=== PATIENT | female | born 1945 | race Hispanic/Latino ===

== ENCOUNTER 2019-08-11 22:07 | Emergency (ER) | payer MEDICARE | END 2019-08-11 23:57 | disposition home or self-care (01) | LOC: EDH 22:07 | DX: J11.1 Influenza due to unidentified influenza virus with other respiratory manifestations (principal); I10 Essential (primary) hypertension; Z95.1 Presence of aortocoronary bypass graft; Z87.891 Personal history of nicotine dependence | CPT/HCPCS: 71046; 87804 ==

== ENCOUNTER 2020-08-30 00:38 | Inpatient (IN) | payer MEDICARE ==
[~2020-08-30] VITALS: Ht 162.6 cm; Wt 66.2 kg
[2020-08-30] MEDS ORDERED: ONDANSETRON 4MG INJ ONE (00:43)
[2020-08-30] MEDS ORDERED: AMIODARONE 150MG VIAL ONE ×2 (00:58→03:40)
[2020-08-30] MEDS ORDERED: 0.9%NACL 100ML 100 ML IV ONE (01:01)
[2020-08-30 01:05] LABS: BASOPHILS % (AUTO) 0.7 % (0.0-5.0); EOSINOPHILS % (AUTO) 3.1 % (0.0-8.0); HEMATOCRIT 32.4 % (36-48); LYMPHOCYTES % (AUTO) 31.9 % (21.0-51.0); MEAN CORPUSCULAR HEMOGLOBIN 31.6 pg (27.0-33.0); MEAN CORPUSCULAR HGB CONC 33.3 g/dL (32.0-36.0); MEAN CORPUSCULAR VOLUME 94.7 fL (79-99); MONOCYTES % (AUTO) 10.6 % (3.0-13.0); NEUTROPHILS % (AUTO) 53.3 % (40.0-77.0); PLATELET COUNT (AUTO) 171 K/uL (130-400); RED BLOOD CELL COUNT(AUTO) 3.42 MIL/uL (4.00-5.50); RED CELL DISTRIBUTION WIDTH 13.3 % (11.0-15.5); WHITE BLOOD COUNT (AUTO) 7.4 K/uL (4.8-10.8)
[2020-08-30 01:18] LABS: INR 1.1 (0.85-1.15); PROTHROMBIN TIME 11.9 SEC (9.6-11.6)
[2020-08-30 01:19] LABS: PARTIAL THROMBOPLASTIN TIME 32.4 SEC (26.3-35.5)
[2020-08-30 01:20] LABS: BILIRUBIN,TOTAL 0.9 mg/dL (0.2-1.0); CREATININE 1.2 mg/dL (0.5-1.5); POTASSIUM 3.5 mmol/L (3.5-5.1); TOTAL PROTEIN, SERUM 6.6 g/dL (6.0-8.3)
[2020-08-30 01:26] LABS: ALBUMIN 3.4 g/dL (3.5-5.0)
[2020-08-30 02:10] LABS: MAGNESIUM 1.9 mg/dL (1.80-2.40); PHOSPHORUS 4.2 mg/dL (2.5-4.9)
[2020-08-30] MEDS ORDERED: 0.9% NACL 500ML IV.SOLN 500 ML IV ONE (02:13)
[2020-08-30 04:45] VITALS: BP 99/49
[2020-08-30] MEDS ORDERED: QUET200T30 PO (06:06)
[2020-08-30] MEDS ORDERED: VITAD50000 PO (06:06)
[2020-08-30] MEDS ORDERED: PROG100C11 PO (06:06)
[2020-08-30] MEDS ORDERED: ATOR40TA69 PO (06:06)
[2020-08-30] MEDS ORDERED: ICOS1CAP PO (06:06)
[2020-08-30] MEDS ORDERED: LACT1CAP78 PO (06:06)
[2020-08-30] MEDS ORDERED: DULO30CA52 PO (06:06)
[2020-08-30] MEDS ORDERED: APIX5TAB PO (06:06)
[2020-08-30] MEDS ORDERED: MECL-160 PO (06:06)
[2020-08-30 06:21] LABS: CREATINE KINASE, TOTAL 72 U/L (21-232); MYOGLOBIN 40 ng/mL (10-92); TROPONIN I < 0.04 ng/mL (0.00-0.06)
[2020-08-30 08:00] VITALS: BP 104/63
[2020-08-30] MEDS ORDERED: MECLIZINE HCL 25 MG TABLET PO SCH (09:00)
[2020-08-30] MEDS ORDERED: FUROSEMIDE 40MG VIAL ONE (09:26)
[2020-08-30] MEDS ORDERED: NITROGLYCERIN 1GM OINT 1 INCH/1GM TD ONE (09:27)
[2020-08-30] MEDS ORDERED: DEXAMETHASONE SOD PHOSPHATE 4 MG/ML 1ML VIAL ONE (09:28)
[2020-08-30] MEDS ORDERED: FUROSEMIDE 40MG VIAL IV SCH (09:45)
[2020-08-30] MEDS ORDERED: NITROGLYCERIN 1GM OINT 1 INCH/1GM TD SCH (09:45)
[2020-08-30] MEDS ORDERED: ALBUTEROL INHALER 90MCG/INH IH PRN (09:45)
[2020-08-30] MEDS ORDERED: DEXAMETHASONE SOD PHOSPHATE 4 MG/ML 1ML VIAL IVP SCH (09:45)
[2020-08-30] MEDS: APIXABAN 5 MG TABLET PO SCH ×2 (10:27→21:06)
[2020-08-30] MEDS ORDERED: GLUCAGON 1MG KIT 1 MG ML IM PRN (10:30)
[2020-08-30] MEDS ORDERED: DEXTROSE 50%-WATER 50 ML DISP.SYRIN IV PRN (10:30)
[2020-08-30] MEDS ORDERED: POTASSIUM CHLORIDE 20MEQ/100ML 100 ML IV PRN ×2 (10:30→20:00)
[2020-08-30] MEDS ORDERED: MAGNESIUM 2GM PREMIX 50ML 50 ML IV PRN ×2 (10:30→20:00)
[2020-08-30] MEDS ORDERED: LIDOCAINE HCL-MPF 1% 2ML VIAL IV PRN ×2 (10:30→20:00)
[2020-08-30] MEDS ORDERED: AMIODARONE 900MG VIAL 450 MG in DEXTROSE 5%-WATER 250 ML IV SCH (10:45)
[2020-08-30 11:01] LABS: APPEARANCE,URINE Clear (CLEAR); BILIRUBIN,URINE Negative (NEGATIVE); COLOR,URINE Yellow (YELLOW); GLUCOSE, URINE (UA) Negative (NEGATIVE); KETONES,URINE Negative (NEGATIVE); LEUKOCYTE ESTERASE ,URINE Small (NEGATIVE); NITRATE,URINE Negative (NEGATIVE); OCCULT BLOOD,URINE Negative (NEGATIVE); PROTEIN,URINE Negative (NEGATIVE)
[2020-08-30 11:16] LABS: BACTERIA,URINE None Seen /HPF (None Seen); MUCUS,URINE Few LPF (None Seen); RBC,URINE None Seen /HPF (0-1); SQUAMOUS EPITHELIAL CELL,UR 0-2 /HPF (0-2); WBC,URINE 0-1 /HPF (0-1)
[2020-08-30 12:00] VITALS: BP 129/43
[2020-08-30] MEDS ORDERED: IPRATROPIUM 0.5 MG/2.5 ML INH IH SCH (12:00)
[2020-08-30 12:11] LABS: CREATINE KINASE, TOTAL 82 U/L (21-232); MYOGLOBIN 61 ng/mL (10-92); TROPONIN I < 0.04 ng/mL (0.00-0.06)
[2020-08-30] MEDS: IPRATROPIUM 0.5 MG/2.5 ML INH IH SCH ×2 (12:15→16:00)
[2020-08-30] MEDS: ALBUTEROL INHALER 90MCG/INH IH SCH ×3 (12:15→20:00)
[2020-08-30] MEDS: SOLU-MEDROL 40MG VIAL IVP SCH ×3 (12:15→21:11)
[2020-08-30] MEDS ORDERED: DILTIAZEM 25MG INJ IVP SCH (14:00)
[2020-08-30] MEDS: DILTIAZEM 125 MG/25 ML INJ 125 MG in 0.9%NACL 100ML 100 ML IV SCH (14:45)
[2020-08-30 16:00] VITALS: BP 116/56
[2020-08-30 16:11] VITALS: BP 157/72
[2020-08-30] MEDS: NITROGLYCERIN 1GM OINT 1 INCH/1GM TD SCH (17:26)
[2020-08-30] MEDS: FUROSEMIDE 20MG VIAL IV SCH (17:26)
[2020-08-30 18:26] LABS: CREATINE KINASE, TOTAL 89 U/L (21-232); MYOGLOBIN 56 ng/mL (10-92); TROPONIN I < 0.04 ng/mL (0.00-0.06)
[2020-08-30 19:00] VITALS: BP 134/60
[2020-08-30] MEDS ORDERED: POTASSIUM CHLORIDE 10% ELIXIR 20 MEQ/15 ML UDCUP PO PRN (20:00)
[2020-08-30] MEDS ORDERED: KCL 20 MEQ ERTAB PO PRN (20:00)
[2020-08-30 20:15] LABS: MAGNESIUM 2.1 mg/dL (1.80-2.40); POTASSIUM 3.9 mmol/L (3.5-5.1)
[2020-08-30] MEDS ORDERED: QUETIAPINE FUMARATE 100 MG TAB PO SCH (21:00)
[2020-08-30] MEDS: ATORVASTATIN 40 MG TABLET PO SCH (21:05)
[2020-08-30] MEDS: DULOXETINE HCL 30 MG CAP PO SCH (21:06)
[2020-08-30] MEDS: PROGESTERONE MICRONIZED 100 MG PO SCH (21:11)
[2020-08-30] MEDS: VASCEPA PO SCH (21:12)
[2020-08-31] VITALS: BP 107/45
[2020-08-31] MEDS: NITROGLYCERIN 1GM OINT 1 INCH/1GM TD SCH ×2 (01:32→09:13)
[2020-08-31] MEDS: ALBUTEROL INHALER 90MCG/INH IH SCH ×5 (01:32→20:29)
[2020-08-31 04:00] VITALS: BP 100/47
[2020-08-31 04:43] LABS: HEMATOCRIT 31.9 % (36-48); MEAN CORPUSCULAR HEMOGLOBIN 31.4 pg (27.0-33.0); MEAN CORPUSCULAR HGB CONC 33.2 g/dL (32.0-36.0); MEAN CORPUSCULAR VOLUME 94.4 fL (79-99); RED BLOOD CELL COUNT(AUTO) 3.38 MIL/uL (4.00-5.50); RED CELL DISTRIBUTION WIDTH 13.2 % (11.0-15.5); WHITE BLOOD COUNT (AUTO) 5.2 K/uL (4.8-10.8)
[2020-08-31 05:11] LABS: CREATININE 1.2 mg/dL (0.5-1.5); POTASSIUM 3.9 mmol/L (3.5-5.1); THYROID STIMULATING HORMONE 0.51 uIU/mL (0.36-3.74)
[2020-08-31] MEDS: SOLU-MEDROL 40MG VIAL IVP SCH ×2 (05:42→10:08)
[2020-08-31] MEDS: FUROSEMIDE 20MG VIAL IV SCH ×2 (05:42→21:25)
[2020-08-31] MEDS ORDERED: FUROSEMIDE 20MG VIAL IV SCH (08:45)
[2020-08-31] MEDS ORDERED: FLUTICASONE/VILANTEROL 1 EACH AER.POW.BA IH SCH (09:00)
[2020-08-31] MEDS: APIXABAN 5 MG TABLET PO SCH ×2 (09:12→20:29)
[2020-08-31] MEDS: LACTOBACILLUS RHAMNOSUS GG 1 EACH CAP.SPRINK PO SCH (09:12)
[2020-08-31] MEDS: VASCEPA PO SCH ×2 (09:15→20:30)
[2020-08-31 10:00] VITALS: BP 89/38
[2020-08-31] MEDS: DILTIAZEM 125 MG/25 ML INJ 125 MG in 0.9%NACL 100ML 100 ML IV SCH (10:37)
[2020-08-31 12:24] VITALS: BP 108/72
[2020-08-31 16:59] VITALS: BP 123/60
[2020-08-31 19:00] VITALS: BP 120/53
[2020-08-31] MEDS: DULOXETINE HCL 30 MG CAP PO SCH (20:29)
[2020-08-31] MEDS: ATORVASTATIN 40 MG TABLET PO SCH (20:30)
[2020-08-31] MEDS: QUETIAPINE FUMARATE 100 MG TAB PO SCH (20:30)
[2020-08-31] MEDS: PROGESTERONE MICRONIZED 100 MG PO SCH (20:30)
[2020-08-31] MEDS ORDERED: DIGOXIN 250 MCG TABLET PO SCH (20:30)
[2020-09-01] VITALS: BP 108/76
[2020-09-01] MEDS ORDERED: DILTIAZEM 50MG VIAL IV ONE ×2 (00:17→23:29)
[2020-09-01] MEDS ORDERED: DILTIAZEM 25MG INJ IVP ONE ×2 (00:18→23:29)
[2020-09-01] MEDS ORDERED: 0.9%NACL 100ML 100 ML IV ONE ×2 (00:18→23:29)
[2020-09-01] MEDS: DILTIAZEM 125 MG/25 ML INJ 125 MG in 0.9%NACL 100ML 100 ML IV SCH (00:32)
[2020-09-01 04:00] VITALS: BP 105/53
[2020-09-01] MEDS: FUROSEMIDE 20MG VIAL IV SCH ×3 (04:45→20:45)
[2020-09-01 08:00] VITALS: BP 125/54
[2020-09-01] MEDS: LACTOBACILLUS RHAMNOSUS GG 1 EACH CAP.SPRINK PO SCH (09:06)
[2020-09-01] MEDS: VASCEPA PO SCH ×2 (09:06→21:00)
[2020-09-01 11:53] VITALS: BP 122/61
[2020-09-01 16:15] VITALS: BP 108/68
[2020-09-01] MEDS: DIGOXIN 125 MCG TABLET PO SCH (17:29)
[2020-09-01 19:00] VITALS: BP 131/70
[2020-09-01] MEDS: ATORVASTATIN 40 MG TABLET PO SCH (21:00)
[2020-09-01] MEDS: QUETIAPINE FUMARATE 100 MG TAB PO SCH (21:00)
[2020-09-01] MEDS: DULOXETINE HCL 30 MG CAP PO SCH (21:00)
[2020-09-02 00:02] VITALS: BP 137/86
[2020-09-02 04:00] VITALS: BP 116/46
[2020-09-02 04:28] LABS: CREATININE 1.1 mg/dL (0.5-1.5); POTASSIUM 3.4 mmol/L (3.5-5.1)
[2020-09-02] MEDS: FUROSEMIDE 20MG VIAL IV SCH (04:45)
[2020-09-02 07:51] VITALS: BP 111/52
[2020-09-02] MEDS ORDERED: METOPROLOL TARTRATE 50 MG TAB PO SCH ×2 (08:45→08:53)
[2020-09-02] MEDS: VASCEPA PO SCH ×2 (09:16→22:47)
[2020-09-02] MEDS: LACTOBACILLUS RHAMNOSUS GG 1 EACH CAP.SPRINK PO SCH (09:16)
[2020-09-02] MEDS ORDERED: ACETAMINOPHEN 325 MG TAB PO PRN (10:15)
[2020-09-02] MEDS ORDERED: ACETAMINOPHEN 325 MG TAB ONE (10:27)
[2020-09-02 12:06] VITALS: BP 96/45
[2020-09-02] MEDS: DIGOXIN 125 MCG TABLET PO SCH (16:00)
[2020-09-02 16:20] VITALS: BP 103/45
[2020-09-02 20:00] VITALS: BP 134/61
[2020-09-02] MEDS: ATORVASTATIN 40 MG TABLET PO SCH (22:47)
[2020-09-02] MEDS: DULOXETINE HCL 30 MG CAP PO SCH (22:47)
[2020-09-02] MEDS: QUETIAPINE FUMARATE 100 MG TAB PO SCH (22:47)
[2020-09-03] VITALS (12 sets, daily range): BP systolic 98–147; BP diastolic 47–66
[2020-09-03 04:26] LABS: HEMATOCRIT 36.2 % (36-48); MEAN CORPUSCULAR HEMOGLOBIN 30.9 pg (27.0-33.0); MEAN CORPUSCULAR VOLUME 96.5 fL (79-99); RED BLOOD CELL COUNT(AUTO) 3.75 MIL/uL (4.00-5.50); RED CELL DISTRIBUTION WIDTH 13.2 % (11.0-15.5); WHITE BLOOD COUNT (AUTO) 8.6 K/uL (4.8-10.8)
[2020-09-03 04:34] LABS: CREATININE 1.1 mg/dL (0.5-1.5)
[2020-09-03] MEDS ORDERED: 0.9% NACL 500ML IV.SOLN 500 ML IV SCH (05:00)
[2020-09-03] MEDS: LACTOBACILLUS RHAMNOSUS GG 1 EACH CAP.SPRINK PO SCH (08:38)
[2020-09-03] MEDS: VASCEPA PO SCH ×2 (08:38→21:00)
[2020-09-03] MEDS ORDERED: METOPROLOL TARTRATE 50 MG TAB PO SCH (09:00)
[2020-09-03] MEDS ORDERED: BIVALIRUDIN 250 MG/VIAL IV ONE (13:17)
[2020-09-03] MEDS ORDERED: SODIUM BICARB 50MEQ 50ML VIAL 50 ML ONE (13:17)
[2020-09-03] MEDS ORDERED: LIDOCAINE HCL 400MG/20ML VIAL ONE (13:18)
[2020-09-03] MEDS ORDERED: FENTANYL CITRATE PF 50 MCG/1 ML 2ML VIAL ONE (13:18)
[2020-09-03] MEDS ORDERED: IOHEXOL-350 75 ML VIAL IV ONE ×3 (13:18→15:18)
[2020-09-03] MEDS ORDERED: NITROGLYCERIN 2 MG VIAL IV ONE (13:18)
[2020-09-03] MEDS ORDERED: MIDAZOLAM HCL 1 MG/ML 2ML VIAL ONE (13:18)
[2020-09-03] MEDS ORDERED: IOHEXOL 350 MG/ML 100ML INFUS..BTL IV ONE ×2 (13:18→14:04)
[2020-09-03] MEDS ORDERED: HEPARIN 10,000 UNIT/10ML (1,000 UNIT/ML) VIAL ONE (15:05)
[2020-09-03] MEDS ORDERED: FUROSEMIDE 20MG VIAL ONE (15:30)
[2020-09-03] MEDS ORDERED: LABETALOL 20MG VIAL IV ONE (15:31)
[2020-09-03] MEDS ORDERED: 0.9%NACL 1000ML 1,000 ML IV SCH (16:00)
[2020-09-03] MEDS: DIGOXIN 125 MCG TABLET PO SCH (17:09)
[2020-09-03] MEDS: QUETIAPINE FUMARATE 100 MG TAB PO SCH (21:08)
[2020-09-03] MEDS: METOPROLOL TARTRATE 50 MG TAB PO SCH (21:08)
[2020-09-03] MEDS: ATORVASTATIN 40 MG TABLET PO SCH (21:08)
[2020-09-03] MEDS: DULOXETINE HCL 30 MG CAP PO SCH (21:08)
[2020-09-04] VITALS: BP 102/45
[2020-09-04 04:00] VITALS: BP 110/45
[2020-09-04 06:20] LABS: HEMATOCRIT 35.3 % (36-48); MEAN CORPUSCULAR HEMOGLOBIN 31.6 pg (27.0-33.0); MEAN CORPUSCULAR HGB CONC 33.4 g/dL (32.0-36.0); MEAN CORPUSCULAR VOLUME 94.6 fL (79-99); RED BLOOD CELL COUNT(AUTO) 3.73 MIL/uL (4.00-5.50); RED CELL DISTRIBUTION WIDTH 12.9 % (11.0-15.5)
[2020-09-04 06:30] LABS: POTASSIUM 4.4 mmol/L (3.5-5.1)
[2020-09-04] MEDS: LACTOBACILLUS RHAMNOSUS GG 1 EACH CAP.SPRINK PO SCH (08:33)
[2020-09-04] MEDS: METOPROLOL TARTRATE 50 MG TAB PO SCH ×2 (08:34→21:31)
[2020-09-04] MEDS: VASCEPA PO SCH ×2 (08:36→21:38)
[2020-09-04 08:37] VITALS: BP 141/57
[2020-09-04 11:45] VITALS: BP 143/53
[2020-09-04 16:17] VITALS: BP 135/56
[2020-09-04] MEDS: DIGOXIN 125 MCG TABLET PO SCH (17:12)
[2020-09-04 19:00] VITALS: BP 138/52
[2020-09-04] MEDS: ATORVASTATIN 40 MG TABLET PO SCH (21:31)
[2020-09-04] MEDS: DULOXETINE HCL 30 MG CAP PO SCH (21:31)
[2020-09-04] MEDS: QUETIAPINE FUMARATE 100 MG TAB PO SCH (21:31)
[2020-09-04] MEDS: ENOXAPARIN SODIUM 80 MG/0.8 ML SQ SCH (21:32)
[2020-09-05] VITALS: BP 102/45
[2020-09-05 04:00] VITALS: BP 129/54
[2020-09-05 05:55] LABS: HEMATOCRIT 34.3 % (36-48); MEAN CORPUSCULAR HEMOGLOBIN 31.3 pg (27.0-33.0); MEAN CORPUSCULAR HGB CONC 33.2 g/dL (32.0-36.0); MEAN CORPUSCULAR VOLUME 94.2 fL (79-99); RED BLOOD CELL COUNT(AUTO) 3.64 MIL/uL (4.00-5.50); RED CELL DISTRIBUTION WIDTH 12.7 % (11.0-15.5); WHITE BLOOD COUNT (AUTO) 8.2 K/uL (4.8-10.8)
[2020-09-05 06:07] LABS: ALBUMIN 2.8 g/dL (3.5-5.0); BILIRUBIN,TOTAL 0.5 mg/dL (0.2-1.0); POTASSIUM 4.4 mmol/L (3.5-5.1); TOTAL PROTEIN, SERUM 6.1 g/dL (6.0-8.3)
[2020-09-05 08:00] VITALS: BP 132/55
[2020-09-05] MEDS: ENOXAPARIN SODIUM 80 MG/0.8 ML SQ SCH (09:35)
[2020-09-05] MEDS: LACTOBACILLUS RHAMNOSUS GG 1 EACH CAP.SPRINK PO SCH (09:35)
[2020-09-05] MEDS: METOPROLOL TARTRATE 50 MG TAB PO SCH (09:36)
[2020-09-05] MEDS: VASCEPA PO SCH (09:36)
[2020-09-05 11:38] VITALS: BP 106/82
[2020-09-06] MEDS ORDERED: **HM**(Cholecalciferol (Vitamin D3) 50,000 UNITS PO SCH (09:00)
== END 2020-09-05 13:45 | disposition short-term general hospital (02) | DRG 286 ==
LOC: EDH 00:38 → EDHIP 03:00 → 4AH 04:47
PROVIDERS: ADMIT Internal Medicine Critical Care Medicine; ATTEND Internal Medicine Critical Care Medicine
PROC: 4A023N8 Measurement of Cardiac Sampling and Pressure, Bilateral, Percutaneous Approach (ICD-10-PCS; principal; 2020-09-03)
PROC: B2111ZZ Fluoroscopy of Multiple Coronary Arteries using Low Osmolar Contrast (ICD-10-PCS; 2020-09-03)
PROC: B3101ZZ Fluoroscopy of Thoracic Aorta using Low Osmolar Contrast (ICD-10-PCS; 2020-09-03)
DX: I11.0 Hypertensive heart disease with heart failure (principal); I50.31 Acute diastolic (congestive) heart failure; J96.01 Acute respiratory failure with hypoxia; I45.10 Unspecified right bundle-branch block; I48.0 Paroxysmal atrial fibrillation; I65.29 Occlusion and stenosis of unspecified carotid artery; F32.9 Major depressive disorder, single episode, unspecified; E78.5 Hyperlipidemia, unspecified; E04.2 Nontoxic multinodular goiter; F41.9 Anxiety disorder, unspecified; E78.1 Pure hyperglyceridemia; I35.0 Nonrheumatic aortic (valve) stenosis; I27.20 Pulmonary hypertension, unspecified; Z20.822 Contact with and (suspected) exposure to COVID-19; Z79.01 Long term (current) use of anticoagulants; Z79.899 Other long term (current) drug therapy; Z87.891 Personal history of nicotine dependence
CPT/HCPCS: 36415; 71045; 76536; 80048; 80053; 81001; 82550; 83735; 83874; 83880; 84100; 84132; 84145; 84439; 84443; 84481; 84484; 85025; 85027; 85610; 85730; 87040; 87426; 93005; 93306; 93356; 93460; 93567; 99156; 99157; C1760; C1769; C1893; C1894; G0378; J0282; J0583; J1100; J1644; J1650; J1940; J2250; J2405; J2920; J3010; J3490; J7040; J7060; Q9967; U0003